=== PATIENT | male | born 1995 | race Caucasian/White ===

== ENCOUNTER 2021-10-18 14:41 | Emergency (ER) | payer OTHER ==
[~2021-10-18] VITALS: Ht 182.9 cm; Wt 81.8 kg
[~2021-10-18 14:41] MED LIST: CEPHALEXIN250 MG/5 M PO; CEPHALEXIN500 M1 PO; CLEOCIN HC150 MG/CAP PO
[2021-10-18 15:00] VITALS: PULSE 78; TEMP 98.2
[2021-10-18] MEDS ORDERED: PEN-VEE K500 MG PO (15:14)
[2021-10-18 15:23] VITALS: BP 130/80
== END 2021-10-18 15:25 | disposition home or self-care (01) ==
LOC: COL.ER 14:41
DX: K08.89 Other specified disorders of teeth and supporting structures (principal); Z28.310 Unvaccinated for COVID-19

== ENCOUNTER 2021-10-19 20:21 | Emergency (ER) | payer OTHER ==
[~2021-10-19] VITALS: Ht 182.9 cm; Wt 86.4 kg
[~2021-10-19 20:21] MED LIST changes: +PEN-VEE K500 MG PO
[2021-10-19 20:27] VITALS: TEMP 98.5
[2021-10-19 20:57] LABS: BASO # 0.1 K/mm3 (0.0-0.2); EOS # 0.1 K/mm3 (0.0-0.7); EOS % 0.8 % (0.0-4.0); GRAN # 6.8 K/mm3 (1.4-6.5); GRAN % 69.7 % (42.2-75.2); HEMATOCRIT 51.8 % (42.0-52.0); LYMPH # 1.6 K/mm3 (1.2-3.4); LYMPH % 16.2 % (20.0-51.0); MEAN CELL VOLUME 88 fl (80.0-100.0); MEAN CORPUSCULAR HEMOGLOBIN 31 pg (27-31); MEAN CORPUSCULAR HGB CONC 35 g/dl (33.0-37.0); MONO # 1.2 K/mm3 (0.1-0.6); PLATELET COUNT 260 K/mm3 (130-400); REDCELL DISTRIBUTION WIDTH-CV 11.8 % (11.5-14.5)
[2021-10-19 21:00] LABS: HEMOGLOBIN 18.2 g/dl (13.5-18.0)
[2021-10-19 21:18] LABS: ALBUMIN 4.6 gm/dL (3.5-5.0); BILIRUBIN,TOTAL 1.4 mg/dL (0.2-1.2); CALCIUM 10.5 mg/dL (8.4-10.2); CREATININE, serum 0.96 mg/dL (0.72-1.25); POTASSIUM 3.6 mmol/L (3.5-4.5); TOTAL PROTEIN 8.6 gm/dL (6.2-8.1)
[2021-10-19 21:22] LABS: COLLECTION METHOD CLEAN CATCH
[2021-10-19 21:26] LABS: PH 5.5 (5.0-8.5); URINE APPEARANCE Clear (CLEAR/HAZY); URINE COLOR Amber (YELLOW); URINE GLUCOSE Negative (NEGATIVE); URINE KETONE TRACE (NEGATIVE); URINE PROTEIN(semi-quant) 2+ (NEGATIVE)
[2021-10-19 21:27] LABS: URINE BLOOD Negative (NEGATIVE); URINE NITRATE Positive (NEGATIVE); URINE UROBILINOGEN 0.2 E.U/dL (0.2-1.0)
[2021-10-19 21:28] LABS: MUCOUS Present (NOT PRESENT); SQUAMOUS EPITHELIAL None Seen /hpf (0-10); URINE BACTERIA None Seen /hpf (NONE SEEN)
[2021-10-19 21:29] LABS: TRICYCLIC ANTIDEPRESS URINE NEGATIVE
[2021-10-19 23:20] VITALS: BP 155/88; PULSE 67
== END 2021-10-19 23:21 | disposition home or self-care (01) ==
LOC: COL.ER 20:21
PROVIDERS: Physician Assistant
DX: R55 Syncope and collapse (principal); R42 Dizziness and giddiness; R11.0 Nausea; E80.7 Disorder of bilirubin metabolism, unspecified; R74.01 Elevation of levels of liver transaminase levels; K76.0 Fatty (change of) liver, not elsewhere classified; R00.2 Palpitations; K08.89 Other specified disorders of teeth and supporting structures; Z28.310 Unvaccinated for COVID-19
CPT/HCPCS: J2405; J7030; Q9967